=== PATIENT | male | born 1970 | race Caucasian/White ===

== ENCOUNTER 2017-10-19 13:46 | Emergency (ER) | payer SELFPAY ==
[2017-10-19] MEDS: NORCO, ANEXSIA 5/325MG TABLET (HYDROcodone/ACETAMINOPHEN) PO (15:43)
[2017-10-19] MEDS: NAPROXEN 250 MG TAB PO (15:43)
== END 2017-10-19 16:45 | disposition home or self-care (01) ==
LOC: M ED 13:46
DX: Z04.1 Encounter for examination and observation following transport accident (principal); S43.102A Unspecified dislocation of left acromioclavicular joint, initial encounter; V86.56XA Driver of dirt bike or motor/cross bike injured in nontraffic accident, initial encounter; Y92.009 Unspecified place in unspecified non-institutional (private) residence as the place of occurrence of the external cause; F17.200 Nicotine dependence, unspecified, uncomplicated; Z98.890 Other specified postprocedural states
CPT/HCPCS: 73030